=== PATIENT | male | born 1950 | race Caucasian/White ===

== ENCOUNTER 2023-08-08 08:30 | Outpatient (CLI) | payer MEDICARE ==
[2023-08-08] MEDS ORDERED: Iopamidol-370 76% 500 ML MDV (1 ML CHARGE) ONE (11:50)
== END 2023-08-08 08:31 | disposition home or self-care (01) ==
LOC: BICCT 08:30
PROVIDERS: ATTEND Urology
DX: C61 Malignant neoplasm of prostate (principal); C67.9 Malignant neoplasm of bladder, unspecified; N40.1 Benign prostatic hyperplasia with lower urinary tract symptoms; N20.0 Calculus of kidney; N42.32 Atypical small acinar proliferation of prostate; R91.1 Solitary pulmonary nodule; N28.1 Cyst of kidney, acquired; N28.89 Other specified disorders of kidney and ureter; Z98.890 Other specified postprocedural states
CPT/HCPCS: 74178; Q9967